=== PATIENT | male | born 1960 | race Caucasian/White ===

== ENCOUNTER 2017-12-05 21:34 | Emergency (ER) | payer BC | END 2017-12-05 22:30 | disposition home or self-care (01) | LOC: NAV ERS 21:34 | DX: S91.302D Unspecified open wound, left foot, subsequent encounter (principal); E03.9 Hypothyroidism, unspecified; B20 Human immunodeficiency virus [HIV] disease; F32.9 Major depressive disorder, single episode, unspecified; Z79.899 Other long term (current) drug therapy; W60.XXXD Contact with nonvenomous plant thorns and spines and sharp leaves, subsequent encounter | CPT/HCPCS: 99283 ==

== ENCOUNTER 2018-01-17 19:25 | Emergency (ER) | payer BC | END 2018-01-17 20:20 | disposition home or self-care (01) | LOC: NAV ERS 19:25 | DX: Z46.89 Encounter for fitting and adjustment of other specified devices (principal); S90.931D Unspecified superficial injury of right great toe, subsequent encounter; E03.9 Hypothyroidism, unspecified; B20 Human immunodeficiency virus [HIV] disease; F32.9 Major depressive disorder, single episode, unspecified; Z79.899 Other long term (current) drug therapy | CPT/HCPCS: 99282 ==

== ENCOUNTER 2018-02-02 11:19 | Emergency (ER) | payer BC ==
[2018-02-02 12:22] LABS: #Eosinphils 0.1 thou/uL (0.0-0.7); #Lymphocytes 1.3 thou/uL (1.20-3.40); #Monocytes 0.6 thou/uL (0.11-0.59); #Neutrophils 3.1 thou/uL (1.40-6.50); %Basophils 0.8 % (0.0-1.0); %Eosinophils 1.1 % (0.0-10.0); %Monocytes 12.1 % (0.0-10.0); ALT (SGPT) 41 U/L (8-55); AST (SGOT) 65 U/L (5-34); Albumin 2.7 g/dL (3.5-5.0); Alkaline Phosphatase 165 U/L (40-150); Anion Gap 11 mmol/L (10-20); BUN (Urea Nitrogen) 13 mg/dL (8.4-25.7); Bilirubin, Total 0.6 mg/dL (0.2-1.2); Calc. Creatinine Clearance 0 mL/min (70-130); Calcium 8.6 mg/dL (7.8-10.44); Carbon Dioxide 16 mmol/L (22-29); Chloride 116 mmol/L (98-107); Estimated GFR-MDRD 67; Globulin 4.8 g/dL (2.4-3.5); Glucose 118 mg/dL (70-105); Hemoglobin 9.5 g/dL (14.0-18.0); Lipase 107 U/L (8-78); Mean Corpuscular HGB CONC 29.7 g/dL (32.0-36.0); Mean Corpuscular Hemoglobin 25.9 pg (27.0-31.0); Mean Corpuscular Volume 87.4 fl (80.0-94.0); Mean Platelet Volume 6.8 fL (7.4-10.4); Platelet Count 91 thou/uL (130-400); Potassium 3.8 mmol/L (3.5-5.1); Protein, Total 7.5 g/dL (6.0-8.3); RBC Distribution Width 20.3 % (11.5-14.5); Red Blood Cell (RBC) Count 3.67 mill/uL (4.70-6.10); Sodium 139 mmol/L (136-145); Troponin I Less than 0.010 ng/mL (< 0.028); White Blood Cell (WBC) Count 5.1 thou/uL (4.8-10.8)
[2018-02-02 12:25] LABS: Anisocytosis SLIGHT = 6-15 cells (100X) (0-5/hpf); Hypochromia MODERATE=16-30 cells (100X) (0-5/hpf); MDiff Complete? YES; PLT Morphology Comment Appears Decreased
[2018-02-02 12:33] LABS: CKMB 8.5 ng/mL (0-6.6)
--- NOTE | 2018-02-02 12:42 | RAD ---
SEMIUPRIGHT PORTABLE CHEST 1 VIEW: Date: 02/02/18 HISTORY: 58-year-old male with history of fatigue, weakness, and lightheadedness, with near syncope. FINDINGS: Heart size is normal. Monitor leads overlie the chest. No confluent pneumonia, overt edema, or pleura l effusion. IMPRESSION: No acute intrathoracic disease. Stable from prior study. POS: [facility]
--- NOTE | 2018-02-02 12:43 | CT ---
BRAIN CT WITHOUT IV CONTRAST: Date: 02/02/18 HISTORY: 58-year-old male with history of lightheadedness, fatigue, weakness, and near syncope. FINDINGS: No focal mass or midline shift. No intra or extra-axial hemorrhage. Sinuses and mastoids are clear of acute process. IMPRESSION: No acute intracranial process. No mass or bleed. POS: [facility]
[2018-02-02 12:50] LABS: Bilirubin Negative (Negative); Blood, Urine Trace (Negative); Clarity Clear (Clear); Glucose, Urine (Dipstick) Negative (Negative); Leukocyte Negative (Negative); Nitrite Negative (Negative); Protein, Urine (Dipstick) Negative (Neg-Trace); Specific Gravity, Urine 1.015 (1.005-1.030); Urobilinogen 0.2 mg/dL (0.2-1.0)
[2018-02-02] MEDS ORDERED: Sodium Chloride 0.9% 1,000 ML ONE (12:58)
[2018-02-02 13:04] LABS: RBC/HPF 0-3 HPF (0-3)
[2018-02-02 13:05] LABS: Bacteria/HPF Rare-Few HPF (None Seen); Other Microscopic Description NO; Squamous Epithelial None Seen HPF (0-3); WBC/HPF 0-3 HPF (0-3)
== END 2018-02-02 14:15 | disposition short-term general hospital (02) ==
LOC: NAV ERS 11:19
DX: G93.40 Encephalopathy, unspecified (principal); D64.9 Anemia, unspecified; E86.0 Dehydration; R74.8 Abnormal levels of other serum enzymes; B20 Human immunodeficiency virus [HIV] disease; E03.9 Hypothyroidism, unspecified; F32.9 Major depressive disorder, single episode, unspecified; Z79.899 Other long term (current) drug therapy
CPT/HCPCS: 70450; 71045; 80053; 81003; 81015; 82140; 82553; 83690; 84443; 84484; 85025; 93005; 94760; 96360; J7050

== ENCOUNTER 2018-06-16 21:51 | Emergency (ER) | payer BC | END 2018-06-16 23:12 | disposition home or self-care (01) | LOC: NAV ERS 21:51 | DX: L89.629 Pressure ulcer of left heel, unspecified stage (principal); Z46.89 Encounter for fitting and adjustment of other specified devices; E03.9 Hypothyroidism, unspecified; B20 Human immunodeficiency virus [HIV] disease; F32.9 Major depressive disorder, single episode, unspecified; Z79.899 Other long term (current) drug therapy | CPT/HCPCS: 99282 ==

== ENCOUNTER 2018-07-28 23:51 | Emergency (ER) | payer BC | END 2018-07-29 01:09 | disposition home or self-care (01) | LOC: NAV ERS 23:51 | DX: Z46.89 Encounter for fitting and adjustment of other specified devices (principal); F17.220 Nicotine dependence, chewing tobacco, uncomplicated; F32.9 Major depressive disorder, single episode, unspecified | CPT/HCPCS: 99283 ==

== ENCOUNTER 2018-08-25 19:18 | Emergency (ER) | payer BC ==
[2018-08-25 20:06] LABS: #Lymphocytes 0.5 thou/uL (1.20-3.40); #Monocytes 0.1 thou/uL (0.11-0.59); %Basophils 0.4 % (0.0-1.0); %Eosinophils 0.1 % (0.0-10.0); %Lymphocytes 14.1 % (21.0-51.0); %Monocytes 2.1 % (0.0-10.0); %Neutrophils 83.4 % (42.0-75.0); Hemoglobin 12.3 g/dL (14.0-18.0); Mean Corpuscular HGB CONC 33.6 g/dL (32.0-36.0); Mean Corpuscular Hemoglobin 33.7 pg (27.0-31.0); Platelet Count 44 thou/uL (130-400); RBC Distribution Width 12.7 % (11.5-14.5); Red Blood Cell (RBC) Count 3.65 mill/uL (4.70-6.10); White Blood Cell (WBC) Count 3.5 thou/uL (4.8-10.8)
[2018-08-25 20:07] LABS: ALT (SGPT) 48 U/L (8-55); AST (SGOT) 75 U/L (5-34); Albumin 3.1 g/dL (3.5-5.0); Alkaline Phosphatase 95 U/L (40-150); Anion Gap 12 mmol/L (10-20); BUN (Urea Nitrogen) 27 mg/dL (8.4-25.7); Bilirubin, Total 1.1 mg/dL (0.2-1.2); CK (CPK) 486 U/L (30-200); Calc. Creatinine Clearance 0 mL/min (70-130); Calcium 9.2 mg/dL (7.8-10.44); Carbon Dioxide 17 mmol/L (22-29); Chloride 116 mmol/L (98-107); Estimated GFR-MDRD 61; Globulin 3.8 g/dL (2.4-3.5); Glucose 157 mg/dL (70-105); Potassium 4.5 mmol/L (3.5-5.1); Protein, Total 6.9 g/dL (6.0-8.3); Sodium 140 mmol/L (136-145)
--- NOTE | 2018-08-25 23:16 | CT ---
CT PULMONARY ANGIOGRAM WITH IV CONTRAST AND 3D MIP RECONSTRUCTION 08/15/18 PROVIDED CLINICAL HISTORY: Chest pain. FINDINGS: There is no evidence for central or segmental pulmonary embolus. Heart, pericardium, and great vessel s appear unremarkable. The lungs are free of significant opacity. There is no pleural fluid or pneumo thorax apparent. The airway appears patent and of normal caliber. The visualized portions of the upper abdomen demonstrate a nodular contour to the hepatic margin comp atible with cirrhosis. Partially visualized splenomegaly. Bilateral gynecomastia. The osseous structu res demonstrate no concerning lytic or blastic lesions. Minimal vascular calcification is seen includ ing coronary calcium. IMPRESSION: 1. No evidence for central or segmental pulmonary embolus. 2. Changes of hepatic cirrhosis and splenomegaly likely reflecting portal hypertension. 3. Minimal vascular calcification is seen including coronary calcium. 1. POS: [facility]
== END 2018-08-26 00:37 | disposition short-term general hospital (02) ==
LOC: NAV ERS 19:18
DX: R07.2 Precordial pain (principal); K74.60 Unspecified cirrhosis of liver; M86.9 Osteomyelitis, unspecified; D69.6 Thrombocytopenia, unspecified; B20 Human immunodeficiency virus [HIV] disease; E03.9 Hypothyroidism, unspecified; F17.220 Nicotine dependence, chewing tobacco, uncomplicated; Z79.899 Other long term (current) drug therapy
CPT/HCPCS: 36415; 71275; 80053; 82550; 84484; 85025; 93005

== ENCOUNTER 2020-07-11 05:14 | Emergency (ER) | payer MEDICARE ==
[2020-07-11 05:54] LABS: ALT (SGPT) 21 U/L (8-55); AST (SGOT) 39 U/L (5-34); Albumin 2.5 g/dL (3.5-5.0); Alkaline Phosphatase 106 U/L (40-110); Anion Gap 12 mmol/L (10-20); BUN (Urea Nitrogen) 25 mg/dL (8.4-25.7); Bilirubin, Total 1.4 mg/dL (0.2-1.2); Calc. Creatinine Clearance 0 mL/min (70-130); Calcium 8.5 mg/dL (7.8-10.44); Carbon Dioxide 22 mmol/L (22-29); Chloride 106 mmol/L (98-107); Estimated GFR-MDRD 56; Globulin 3.9 g/dL (2.4-3.5); Glucose 83 mg/dL (70-105); Protein, Total 6.4 g/dL (6.0-8.3); Sodium 136 mmol/L (136-145)
[2020-07-11 06:01] LABS: Anisocytosis SLIGHT = 6-15 cells (100X) (0-5/hpf); Band 10 % (5-11); Hemoglobin 11.2 g/dL (14.0-18.0); Lymphocytes 35 % (21-51); MDiff Complete? YES; Macrocytosis SLIGHT = 6-15 cells (100X) (0-5/hpf); Mean Corpuscular HGB CONC 33.3 g/dL (32.0-36.0); Mean Corpuscular Hemoglobin 35.6 pg (27.0-31.0); Mean Platelet Volume 10.9 fL (7.4-10.4); Metamyelocyte 5 % (0-0); Monocytes 2 % (0-10); Myelocyte 2 % (0-0); Neutrophil 46 % (42-75); Ovalocytes SLIGHT = 2-5 cells (100X) (0-1/hpf); Platelet Count 69 thou/uL (130-400); Platelet Morphology Comment Appears Decreased; Polychromasia SLIGHT = 2-3 cells (100X) (0-2/hpf); RBC Distribution Width 13.1 % (11.5-14.5); Red Blood Cell (RBC) Count 3.16 mill/uL (4.70-6.10); White Blood Cell (WBC) Count 3.6 thou/uL (4.8-10.8)
== END 2020-07-11 08:15 | disposition home or self-care (01) ==
LOC: NAV ERS 05:14
DX: R42 Dizziness and giddiness (principal); T48.1X5A Adverse effect of skeletal muscle relaxants [neuromuscular blocking agents], initial encounter; E86.0 Dehydration; D61.818 Other pancytopenia; E03.9 Hypothyroidism, unspecified; F32.9 Major depressive disorder, single episode, unspecified; F17.220 Nicotine dependence, chewing tobacco, uncomplicated; Z79.899 Other long term (current) drug therapy
CPT/HCPCS: 80053; 83605; 84484; 85025; 93005